=== PATIENT | male | born 2000 | race Asian ===

== ENCOUNTER 2023-11-23 12:29 | Outpatient (CLI) | payer MEDICAID ==
[2023-11-23 18:13] LABS: BASOPHILS # (AUTO) 0.1 10^3/uL (0.0-0.1); EOSINOPHILS # (AUTO) 0.1 10^3/uL (0.0-0.7); EOSINOPHILS % (AUTO) 2.3 %; HCT - HEMATOCRIT 47.1 % (42.0-52.0); HGB - HEMOGLOBIN 15.4 g/dL (14.0-18.0); LYMPHOCYTES # (AUTO) 2.2 10^3/uL (1.5-3.5); LYMPHOCYTES % (AUTO) 37.2 %; MEAN CORPUSCULAR HEMOGLOBIN 28.8 pg (27.0-31.0); MEAN CORPUSCULAR HGB CONC 32.7 g/dL (32.0-36.0); MEAN CORPUSCULAR VOLUME 88.2 fL (80.0-94.0); MEAN PLATELET VOLUME 10.5 fL (7.4-11.4); MONOCYTES # (AUTO) 0.5 10^3/uL (0.0-1.0); MONOCYTES % (AUTO) 7.6 %; NEUTROPHILS % (AUTO) 51.1 %; PLT - PLATELET COUNT 292 10^3/uL (130-450); RED BLOOD COUNT 5.34 10^6/uL (4.70-6.10); RED CELL DISTRIBUTION WIDTH 13.7 % (12.0-15.0)
[2023-11-23 18:29] LABS: ALBUMIN 4.7 g/dL (3.2-5.5); ALBUMIN/GLOBULIN RATIO 2.4 (1.0-2.2); ALKALINE PHOSPHATASE 44 IU/L (42-121); ALT ALANINE AMINOTRANSFERASE 24 IU/L (10-60); AST ASPARTATE AMINOTRANSFERASE 18 IU/L (10-42); BILIRUBIN,TOTAL 0.6 mg/dL (0.2-1.0); BUN - BLOOD UREA NITROGEN 20 mg/dL (6-20); CALCIUM 9.8 mg/dL (8.5-10.3); CARBON DIOXIDE - CO2 28 mmol/L (21-32); CHLORIDE 103 mmol/L (101-111); CHOL/HDL RATIO 3.2 (<5.0); CHOLESTEROL 220 mg/dL; GFR - MDRD 93 (>89); GLUCOSE 82 mg/dL (74-104); HDL CHOLESTEROL 68 mg/dL; LDL CHOLESTEROL,CALCULATED 136 mg/dL; POTASSIUM 4.7 mmol/L (3.5-4.5); SODIUM 136 mmol/L (135-145); TOTAL PROTEIN 6.7 g/dL (6.4-8.9); TRIGLYCERIDES 78 mg/dL; VLDL CHOLESTEROL 16 mg/dL
[2023-11-23 18:39] LABS: THYROID STIMULATING HORMONE 3.44 uIU/mL (0.34-5.60)
[2023-11-23 19:46] LABS: ESTIMATED AVERAGE GLUCOSE 103 mg/dL (70-100); HEMOGLOBIN A1c% 5.2 % (4.27-6.07)
== END 2023-11-23 12:30 | disposition home or self-care (01) ==
LOC: LAB.N 12:29
DX: R53.83 Other fatigue (principal)
CPT/HCPCS: 36415; 80050; 80061; 83036; 83721